=== PATIENT | male | born 1995 | race Caucasian/White ===

== ENCOUNTER 2017-12-10 02:18 | Emergency (ER) | payer OTHER ==
[~2017-12-10] VITALS: Ht 185.4 cm; Wt 88.5 kg
[2017-12-10 02:23] VITALS: Ht 185.4 cm; Wt 88.5 kg
[2017-12-10 04:16] VITALS: BP 128/69
== END 2017-12-10 04:16 | disposition home or self-care (01) ==
LOC: ED 02:18
DX: S93.402A Sprain of unspecified ligament of left ankle, initial encounter (principal); Z90.89 Acquired absence of other organs; X50.1XXA Overexertion from prolonged static or awkward postures, initial encounter; Y93.89 Activity, other specified; Y92.89 Other specified places as the place of occurrence of the external cause; Y99.8 Other external cause status
CPT/HCPCS: Q0092

== ENCOUNTER 2019-10-18 07:45 | Emergency (ER) | payer OTHER ==
[~2019-10-18] VITALS: Ht 185.4 cm; Wt 93.0 kg
[2019-10-18 07:56] VITALS: Ht 185.4 cm; Wt 93.0 kg
[2019-10-18 09:12] VITALS: BP 132/70
== END 2019-10-18 09:12 | disposition home or self-care (01) ==
LOC: ED 07:45
DX: S61.411A Laceration without foreign body of right hand, initial encounter (principal); Z90.89 Acquired absence of other organs; W25.XXXA Contact with sharp glass, initial encounter; Y93.89 Activity, other specified; Y92.89 Other specified places as the place of occurrence of the external cause; Y99.8 Other external cause status
CPT/HCPCS: 90715; J2001